=== PATIENT | male | born 1960 | race Caucasian/White ===

== ENCOUNTER 2020-11-27 17:07 | Emergency (ER) | payer SELFPAY | END 2020-11-27 18:10 | disposition home or self-care (01) | LOC: MADERS 17:07 | DX: T23.222A Burn of second degree of single left finger (nail) except thumb, initial encounter (principal); I10 Essential (primary) hypertension; X08.8XXA Exposure to other specified smoke, fire and flames, initial encounter | CPT/HCPCS: 99283 ==

== ENCOUNTER 2020-11-28 14:59 | Emergency (ER) | payer SELFPAY ==
[2020-11-28] MEDS ORDERED: Ibuprofen 400 MG TAB ONE (16:40)
== END 2020-11-28 16:40 | disposition home or self-care (01) ==
LOC: MADERS 14:59
DX: S39.012A Strain of muscle, fascia and tendon of lower back, initial encounter (principal); X50.0XXA Overexertion from strenuous movement or load, initial encounter
CPT/HCPCS: 99283